=== PATIENT | female | born 1975 | race Caucasian/White ===

== ENCOUNTER 2017-08-07 13:31 | Emergency (ER) | payer MEDICAID, MEDICARE, OTHER ==
[2017-08-07] MEDS ORDERED: Ketorolac Tromethamine 60 MG/2 ML VIAL ONE (14:14)
== END 2017-08-07 14:47 | disposition home or self-care (01) ==
LOC: SCSER 13:31
DX: M25.721 Osteophyte, right elbow (principal); F41.9 Anxiety disorder, unspecified; F31.9 Bipolar disorder, unspecified; F17.210 Nicotine dependence, cigarettes, uncomplicated
CPT/HCPCS: 96372; J1885

== ENCOUNTER 2017-12-18 03:53 | Emergency (ER) | payer OTHER, SELFPAY | END 2017-12-18 05:18 | disposition left against medical advice (07) | LOC: ERS 03:53 | DX: R10.13 Epigastric pain (principal); R11.2 Nausea with vomiting, unspecified; F41.9 Anxiety disorder, unspecified; F17.210 Nicotine dependence, cigarettes, uncomplicated; F31.9 Bipolar disorder, unspecified | CPT/HCPCS: 99283 ==

== ENCOUNTER 2017-12-20 20:35 | Emergency (ER) | payer SELFPAY ==
[2017-12-20] MEDS ORDERED: Ibuprofen 800 MG TAB ONE (21:24)
--- NOTE | 2017-12-20 21:29 | RAD ---
LEFT HAND THREE VIEWS: Indication: Fall with injury, pain. FINDINGS: Subtle cortical irregularity is seen at the dorsal base of the fifth digit proximal phalanx. No radio paque foreign body is seen. IMPRESSION: Subtle cortical irregularity at the base of the fifth digit proximal phalanx. This could relate to a nondisplaced acute fracture, if there is pain in this region. Correlate clinically and if necessary, imaging follow up may be obtained. POS: GERA
== END 2017-12-20 21:24 | disposition home or self-care (01) ==
LOC: SCSER 20:35
DX: S62.667A Nondisplaced fracture of distal phalanx of left little finger, initial encounter for closed fracture (principal); F41.9 Anxiety disorder, unspecified; F31.9 Bipolar disorder, unspecified; F17.210 Nicotine dependence, cigarettes, uncomplicated; Z87.442 Personal history of urinary calculi; W01.0XXA Fall on same level from slipping, tripping and stumbling without subsequent striking against object, initial encounter

== ENCOUNTER 2019-03-21 17:57 | Emergency (ER) | payer SELFPAY ==
[2019-03-21] MEDS ORDERED: Metoclopramide HCl 10 MG/2 ML VIAL ONE (18:19)
[2019-03-21] MEDS ORDERED: Ketorolac Tromethamine 30 MG/ML VIAL ONE (18:19)
[2019-03-21 18:44] LABS: #Basophils 0.1 thou/uL (0.0-0.2); #Lymphocytes 1.1 thou/uL (1.20-3.40); #Monocytes 0.8 thou/uL (0.11-0.59); #Neutrophils 10.7 thou/uL (1.40-6.50); %Basophils 0.9 % (0.0-1.0); %Eosinophils 0.2 % (0.0-10.0); %Lymphocytes 8.7 % (21.0-51.0); %Monocytes 6.3 % (0.0-10.0); %Neutrophils 83.9 % (42.0-75.0); Hemoglobin 12.4 g/dL (12.0-16.0); Mean Corpuscular HGB CONC 33.2 g/dL (32.0-36.0); Mean Corpuscular Hemoglobin 28.1 pg (27.0-31.0); Mean Corpuscular Volume 84.9 fL (78.0-98.0); Mean Platelet Volume 9.2 fL (7.4-10.4); Platelet Count 188 thou/uL (130-400); RBC Distribution Width 12.9 % (11.5-14.5); Red Blood Cell (RBC) Count 4.42 mill/uL (4.20-5.40); White Blood Cell (WBC) Count 12.7 thou/uL (4.8-10.8)
[2019-03-21] MEDS ORDERED: Lidocaine 4% Cream 5 GM TUBE w/ Tegaderm ONE (18:44)
[2019-03-21 18:50] LABS: BHCG - Serum Negative (NEGATIVE); Pregs Control Background? CLEAR/WHITE (CLR/WHITE); Pregs Control Bar Appear? YES (CONTROL BAR)
[2019-03-21 18:54] LABS: Anion Gap 13 mmol/L (10-20); BUN (Urea Nitrogen) 9 mg/dL (7.0-18.7); Calc. Creatinine Clearance 0 mL/min (70-130); Calcium 9.7 mg/dL (7.8-10.44); Carbon Dioxide 24 mmol/L (22-29); Chloride 102 mmol/L (98-107); Estimated GFR-MDRD 90; Glucose 95 mg/dL (70-105); Potassium 3.4 mmol/L (3.5-5.1); Sodium 136 mmol/L (136-145)
[2019-03-21 19:19] LABS: Bilirubin Negative (Negative); Blood, Urine Large (Negative); Clarity Hazy (Clear); Glucose, Urine (Dipstick) Negative (Negative); Leukocyte Moderate (Negative); Nitrite Positive (Negative); Protein, Urine (Dipstick) 100 mg/dL (Neg-Trace); pH, Urine 6.5 (5.0-9.0)
[2019-03-21 19:20] LABS: WBC/HPF 21-50 HPF (0-3)
[2019-03-21 19:21] LABS: Bacteria/HPF 3+ HPF (None Seen)
--- NOTE | 2019-03-21 19:24 | CT ---
Noncontrast enhanced images abdomen pelvis. HISTORY: Flank pain since with history of kidney stones. The lung bases are unremarkable. No evidence of free intraperitoneal air seen. The liver and spleen are unremarkable. The gallbladder is been surgically removed. The pancreas is unremarkable. Adrenal glands unremarkable. Multiple nonobstructing bilateral renal calculi seen. No evidence of obstructing ureteral calculi see n. There is some thickening of the urinary bladder. This may represent possible cystitis. Correlate with clinical and laboratory evaluation. No dilated loops of small bowel or colon seen. IMPRESSION: Numerous nonobstructing bilateral renal calculi.
== END 2019-03-21 19:41 | disposition home or self-care (01) ==
LOC: SCSER 17:57
DX: N10 Acute pyelonephritis (principal); F41.9 Anxiety disorder, unspecified; F31.9 Bipolar disorder, unspecified; F17.210 Nicotine dependence, cigarettes, uncomplicated
CPT/HCPCS: 36415; 74176; 80048; 81003; 81015; 84703; 85025; 87077; 87086; 87186; J1885; J2765

== ENCOUNTER 2019-09-06 17:47 | Emergency (ER) | payer SELFPAY ==
[2019-09-06] MEDS ORDERED: Ketorolac Tromethamine 30 MG/ML VIAL ONE (19:03)
== END 2019-09-06 19:30 | disposition home or self-care (01) ==
LOC: ERS 17:47
DX: K04.7 Periapical abscess without sinus (principal); K03.81 Cracked tooth; K02.9 Dental caries, unspecified; F17.210 Nicotine dependence, cigarettes, uncomplicated; Z87.442 Personal history of urinary calculi
CPT/HCPCS: 96372; 99283; J1885

== ENCOUNTER 2019-09-23 16:11 | Emergency (ER) | payer SELFPAY | END 2019-09-23 17:51 | disposition short-term general hospital (02) | LOC: ERS 16:11 → EEVIPCON 16:11 → ERS 17:51 | DX: T76.21XA Adult sexual abuse, suspected, initial encounter (principal); F41.9 Anxiety disorder, unspecified; F31.9 Bipolar disorder, unspecified; F17.210 Nicotine dependence, cigarettes, uncomplicated; Z87.442 Personal history of urinary calculi | CPT/HCPCS: 99285 ==

== ENCOUNTER 2020-01-22 18:02 | Emergency (ER) | payer SELFPAY ==
[2020-01-22] MEDS ORDERED: cefTRIAXone\\ROCEPHIN 2 GM VIAL ONE (18:30)
[2020-01-22 18:32] LABS: #Basophils 0.1 thou/uL (0.0-0.2); #Lymphocytes 1.3 thou/uL (1.20-3.40); #Monocytes 0.4 thou/uL (0.11-0.59); #Neutrophils 6.8 thou/uL (1.40-6.50); %Basophils 0.6 % (0.0-1.0); %Eosinophils 0.2 % (0.0-10.0); %Lymphocytes 14.9 % (21.0-51.0); %Monocytes 5.1 % (0.0-10.0); %Neutrophils 79.2 % (42.0-75.0); Hemoglobin 13.8 g/dL (12.0-16.0); Mean Corpuscular HGB CONC 33.8 g/dL (32.0-36.0); Mean Corpuscular Hemoglobin 28.8 pg (27.0-31.0); Mean Corpuscular Volume 85.2 fL (78.0-98.0); Mean Platelet Volume 10.2 fL (7.4-10.4); Platelet Count 145 thou/uL (130-400); RBC Distribution Width 13.8 % (11.5-14.5); Red Blood Cell (RBC) Count 4.78 mill/uL (4.20-5.40); White Blood Cell (WBC) Count 8.5 thou/uL (4.8-10.8)
[2020-01-22] MEDS ORDERED: Acetaminophen 500 MG TAB ONE (18:32)
[2020-01-22 18:44] LABS: BHCG - Serum Negative (NEGATIVE); Pregs Control Background? CLEAR/WHITE (CLR/WHITE); Pregs Control Bar Appear? YES (CONTROL BAR)
[2020-01-22 18:57] LABS: ALT (SGPT) Less than 7 U/L (8-55); AST (SGOT) 11 U/L (5-34); Albumin 4.4 g/dL (3.5-5.0); Alkaline Phosphatase 84 U/L (40-110); Anion Gap 11 mmol/L (10-20); BUN (Urea Nitrogen) 9 mg/dL (7.0-18.7); Bilirubin, Total 0.6 mg/dL (0.2-1.2); Calc. Creatinine Clearance 0 mL/min (70-130); Carbon Dioxide 26 mmol/L (22-29); Chloride 100 mmol/L (98-107); Estimated GFR-MDRD 87; Globulin 2.8 g/dL (2.4-3.5); Glucose 91 mg/dL (70-105); Lipase 9 U/L (8-78); Potassium 3.3 mmol/L (3.5-5.1); Protein, Total 7.2 g/dL (6.0-8.3); Sodium 134 mmol/L (136-145)
--- NOTE | 2020-01-22 19:20 | CT ---
CT Stone Protocol: 01/22/2020 6:17 PM HISTORY: Bilateral lower back pain that began this afternoon COMPARISON: 03/21/2019 TECHNIQUE: Multiple contiguous axial images were obtained and a CT of the abdomen and pelvis without IV contrast . Coronal and sagittal reformats were performed. FINDINGS: This examination is limited for the evaluation of solid organs and vascular structures due to the lac k of intravenous contrast. Lower Chest: within normal limits. Abdomen: Liver: within normal limits. Bile Ducts: Normal caliber. Gallbladder: Removed Pancreas: within normal limits. Spleen: Calcified granulomas Adrenals: within normal limits. Kidneys: Nonobstructing calcifications are seen in both kidneys measuring up to 6 mm in size. Moderat e right hydronephrosis. Bilateral hypodensities measuring up to 1.8 cm in size likely represent cysts. Pelvis: Reproductive Organs: No pelvic masses. Ureters: A 6 mm calcification is seen in the distal right ureter with moderate right hydroureter. Bladder: within normal limits. Bowel: Normal caliber. Scattered diverticula in the colon. Normal appendix. Mesenteric Lymph Nodes: No enlarged mesenteric lymph nodes. Peritoneum: No ascites or free air, no fluid collection. Vessels: Normal caliber aorta Retroperitoneum: within normal limits. Abdominal Wall: within normal limits. Bones: Unremarkable. IMPRESSION: 1. Right distal ureteral calcification with moderate right hydronephrosis 2. Nonobstructing bilateral renal calcifications 3. Diverticulosis 4. Bilateral renal cysts
[2020-01-22] MEDS ORDERED: Morphine 4 MG/ML VIAL ONE (19:37)
[2020-01-22] MEDS ORDERED: Ondansetron PF 4 MG/2 ML Vial ONE (19:37)
[2020-01-22 19:49] LABS: Bacteria/HPF 3+ HPF (None Seen); Bilirubin Negative (Negative); Blood, Urine Trace (Negative); Clarity Clear (Clear); Glucose, Urine (Dipstick) Normal (Negative); Leukocyte 75 Leu/uL (Negative); Nitrite Negative (Negative); Protein, Urine (Dipstick) 10 mg/dL (Neg-Trace); Squamous Epithelial 0-3 HPF (0-3); Urobilinogen Normal mg/dL (Less than 2); WBC/HPF 21-50 HPF (0-3)
--- NOTE | 2020-01-22 20:24 | PDOC.FPRHP ---
- History of Present Illness Chief Complaint: flank pain and fever History of Present Illness: Around 1am this morning she was on her way home from a wedding and started experiencing steady, cramping 8/10 back pain. She went home and slept. She started running a fever sometime last night and decided she should come be evaluated at the hospital. She has a history of frequent kidney stones, last one being 1 year ago. She has not ever had surgery for a stone before. She has had associated nausea. - Allergies/Adverse Reactions Allergies Allergy/AdvReac Type Severity Reaction Status Date / Time ketorolac [From Toradol] Allergy Hives Verified 01/22/20 20:47 tramadol Allergy Hives Verified 01/22/20 20:47 - History PMHx: Nephrolithiasis PSHx: x 2 Cholecystecomy FHx: Dad: heart problems 2 sisters: heart valve problems Brother and Mother: Diabetes Social: Social alcohol use. Denies illicit drug use. Smokes 1ppd x 30years. - Review of Systems General: reports: fever/chills. denies: weight/appetite/sleep changes, night sweats, fatigue Eyes: denies: eye pain, vision changes ENT: denies: nasal congestion, rhinorrhea Respiratory: denies: cough, congestion, shortness of breath Cardiovascular: denies: chest pain, palpitation, edema Gastrointestinal: reports: nausea. denies: vomiting, diarrhea, constipation Genitourinary: reports: other (frequency). denies: incontinence, dysuria, polyuria Skin: denies: rashes, lesions Musculoskeletal: denies: pain, tenderness Neurological: denies: numbness, syncope, seizure, weakness Psychological: reports: anxiety, depression - Vital signs BP: 123/80, Pulse: 115, Resp: 18, Temp: 100.7 (Oral), Pain: 0, O2 sat: 97 on ( Room Air), Time: 01/22/2020 20:00. Weight: 70kg FMR H&P: Results - Labs Result Diagrams: 01/22/20 18:21 01/22/20 18:21 Lab results: WBC 8.5 thou/uL (4.8-10.8) 01/22/20 18: Hgb 13.8 g/dL (12.0-16.0) 01/22/20 18:21 Hct 40.7 % (36.0-47.0) 01/22/20 18:21 MCV 85.2 fL (78.0-98.0) 01/22/20 18:21 Plt Count 145 thou/uL (130-400) 01/22/20 18:21 Neutrophils % 79.2 % (42.0-75.0) H 01/22/20 18:21 Sodium 134 mmol/L (136-145) L 01/22/20 18:21 Potassium 3.3 mmol/L (3.5-5.1) L 01/22/20 18:21 Chloride 100 mmol/L (98-107) 01/22/20 18:21 Carbon Dioxide 26 mmol/L (22-29) 01/22/20 18:21 BUN 9 mg/dL (7.0-18.7) 01/22/20 18:21 Creatinine 0.73 mg/dL (0.6-1.1) 01/22/20 18: Glucose 91 mg/dL (70-105) 01/22/20 18:21 Lactic Acid 1.2 mmol/L (0.5-2.2) 01/22/20 18: Calcium 10.0 mg/dL (7.8-10.44) 01/22/20 18:21 Total Bilirubin 0.6 mg/dL (0.2-1.2) 01/22/20 18:21 AST 11 U/L (5-34) 01/22/20 18:21 ALT Less than 7 U/L (8-55) L 01/22/20 18:21 Alkaline Phosphatase 84 U/L (40-110) 01/22/20 18: Serum Total Protein 7.2 g/dL (6.0-8.3) 01/22/20 18:21 Albumin 4.4 g/dL (3.5-5.0) 01/22/20 18: Lipase 9 U/L (8-78) 01/22/20 18:21 Urine Ketones Negative mg/dL (Negative) 01/22/20 19:25 Urine Blood Trace (Negative) A 01/22/20 19:25 Urine Nitrite Negative (Negative) 01/22/20 19: Ur Leukocyte Esterase 75 Debbie/uL (Negative) A 01/22/20 19:25 Urine RBC 7-10 HPF (0-3) A 01/22/20 19:25 Urine WBC 21-50 HPF (0-3) A 01/22/20 19:25 Ur Squamous Epith Cells 0-3 HPF (0-3) 01/22/20 19:25 Urine Bacteria 3+ HPF (None Seen) A 01/22/20 19:25 - Radiology Interpretation CT scan - abdomen Status: report reviewed by me (1. Right distal ureteral calcification with moderate right hydronephrosis 2. Nonobstructing bilateral renal calcifications 3. Diverticulosis 4. Bilateral renal cysts) FMR H&P: A/P - Plan Dr. Hu had been consulted from the ED and recommended surgical intervention and planned to perform a procedure later in the night, however the patient was not receptive to the idea of surgery. Before the patient was seen by the upper level resident or attending she decided to leave AMA, stating that she did not want surgery. Multiple attempts by myself, Dr. Allred and her nurse were made to explain the medical necessity for treatment and the possible outcomes for not treating her condition, including worsening infection, sepsis and even . She refused treatment and signed paperwork to leave against medical advice. FMR H&P: Upper Level - Plan Date/Time: 01/22/202021 I, [], have evaluated this patient and agree with findings/plan as outlined by internal communications manager resident. Pertinent changes/additions are listed here.
[2020-01-22 20:28] LABS: PTT 31.5 SEC (22.9-36.1); Prothrombin Time 12.9 SEC (12.0-14.7)
[2020-01-22] MEDS ORDERED: Iothalamate Meglumine 60% 50 ML VIAL FS ONE (20:43)
--- NOTE | 2020-01-26 15:29 | EKG ---
Test Reason : Blood Pressure : / mmHG Vent. Rate : 113 BPM Atrial Rate : 113 BPM P-R Int : 166 ms QRS Dur : 084 ms QT Int : 330 ms P-R-T Axes : 060 075 056 degrees QTc Int : 452 ms Sinus tachycardia Otherwise normal ECG Confirmed by MELINDA KEARNS, YOMI ([id number]), school photograph editor DANAY MEDLEY ([id number]) on 01/26/2020 3:29:09 PM Referred By: Confirmed By:YOMI LAWRENCE MD
== END 2020-01-22 21:02 | disposition left against medical advice (07) ==
LOC: ERS 18:02
DX: N13.2 Hydronephrosis with renal and ureteral calculous obstruction (principal); F31.9 Bipolar disorder, unspecified; F41.9 Anxiety disorder, unspecified; F17.210 Nicotine dependence, cigarettes, uncomplicated
CPT/HCPCS: 36415; 74176; 80053; 81003; 81015; 83605; 83690; 84703; 85025; 85610; 85730; 87040; 87086; 87149; 87804; 93005; 96361; 96365; 96375; J0696; J2270; J2405